=== PATIENT | female | born 1950 | race Caucasian/White ===

== ENCOUNTER 2020-09-04 16:10 | Emergency (ER) | payer MEDICARE, OTHER ==
[2020-09-04] MEDS ORDERED: MOBIC15 MG PO (21:15)
[2020-09-04] MEDS ORDERED: CYCLOBENZAPRINE5 MG PO (21:15)
== END 2020-09-04 20:15 | disposition home or self-care (01) ==
LOC: ER1 16:10
DX: G43.909 Migraine, unspecified, not intractable, without status migrainosus (principal); M54.5 Low back pain; M25.552 Pain in left hip
CPT/HCPCS: 70450; 93005; 96372; 99284; J0595; J2550